=== PATIENT | male | born 1995 | race Hispanic/Latino ===

== ENCOUNTER 2020-02-25 16:29 | Emergency (ER) | payer OTHER, MEDICAID, SELFPAY ==
[2020-02-25 16:31] VITALS: BP 155/97; PULSE 83; RESP 18; TEMP 36.3; O2SAT 97; BMI 46.9
--- NOTE | 2020-02-25 17:12 | ED.VISSUMM ---
- ER Visit Summary Date of Service: 02/25/20 Chief Complaint: Right index finger laceration History of Present Illness: The patient is a 24 M presenting with right index finger laceration. Patient states he accidentally cut his right index finger on the metal edge of a tape dispenser. He is left-handed. Tetanus is up-to-date. No other injuries. Physical Examination: Vitals are stable. Patient is afebrile. Alert no acute distress. HEENT exam is unremarkable. Neck is supple. Lungs are clear and equal bilaterally. Extremities 2, 1 cm lacerations finger pad of right index finger. AFROM. Tendon function normal. Normal cap refill Skin is warm and dry. Remainder of exam is unremarkable. Emergency Department Course and Treatment: Wound was copiously irrigated. Closed with Dermabond. Advised wound care instructions. Advised to return to the ED for worsening complaints. Disposition: Discharge Impression: Right index finger laceration, laceration repair This note was generated with [employer] dictation software. It may contain incorrect words, spelling, and punctuation that were not noted in review of the chart prior to signing ED Disposition - Plan for ED Patient: Referrals: Care Physician,No Primary [Primary Care Provider] -
--- NOTE | 2020-02-25 17:16 | ED.DEP ---
ED Disposition - Plan for ED Patient: Instructions: ED Laceration Ext Skin Glue Referrals: Care Physician,No Primary [Primary Care Provider] -
[2020-02-25 17:37] VITALS: BP 110/98; PULSE 90; RESP 16; O2SAT 98
== END 2020-02-25 17:37 | disposition home or self-care (01) ==
LOC: ED 17:21
PROVIDERS: Emergency Provider Emergency Medicine
DX: S61.210A Laceration without foreign body of right index finger without damage to nail, initial encounter (principal); W26.8XXA Contact with other sharp object(s), not elsewhere classified, initial encounter; Y93.89 Activity, other specified; Y92.89 Other specified places as the place of occurrence of the external cause; Y99.8 Other external cause status
CPT/HCPCS: 12001; 99282

== ENCOUNTER 2020-03-29 08:47 | Emergency (ER) | payer OTHER, SELFPAY ==
[2020-03-29 08:49] VITALS: BP 154/84; PULSE 111; RESP 16; TEMP 36.3; O2SAT 96; BMI 40.8
--- NOTE | 2020-03-29 09:13 | RAD_ITS ---
STUDY: X-RAY CHEST REASON FOR EXAM: Male, 24 years old. N/V STARTING THIS AM -- COUGH OVER THE LAST FEW DAYS TECHNIQUE: Single AP portable view of the chest. COMPARISON: None. FINDINGS: The lungs are clear and expanded. There is no demonstrated pleural abnormality. Normal size heart. Normal mediastinum and vargas. Normal visualized pulmonary arteries. Normal visualized aortic arch and descending thoracic aorta. Normal visualized thoracic spine. Normal visualized ribs, clavicles, and shoulders. There is no demonstrated abnormality of the visualized soft tissue structures of the upper abdomen. RAD/Chest 1 View (Portable) IMPRESSION: Normal x-ray examination of the chest. Electronically Signed: Philip Renee, at 9:56 EDT , Service support ,
--- NOTE | 2020-03-29 09:15 | ED.VIS.GEN ---
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 He wears a mask the entire time he has there. He has had a cough for around 3 days. He is also felt very nauseated, this morning he vomited twice. It was nonbilious nonbloody. He has had no melena. He was advised by his work to leave and see the doctor and possibly get tested for COVID, and to get a doctors note for what ever is recommended. He denies any fevers chills or myalgias. No shortness of breath. No abdominal pain or diarrhea. No recent antibiotics or hospitalizations or surgeries. States he is healthy. He denies any dizziness/vertigo, headaches, pleuritic symptoms. No recent injuries. 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 Past Medical History - Allergies and Home Meds Allergies/Adverse Reactions: Allergies Penicillins Allergy (Verified 03/29/20 08:49) Blayne Primary Care Physician: Care Physician,No Primary [Primary Care Provider] - Past Medical History: None Smoking Status: Current some day smoker Review of Systems General: Reports: Malaise. Denies: Chills, Fever, Sweats Eyes: Denies: Visual changes - bilaterally, Diplopia ENT: Denies: Bilateral ear pain, Rhinorrhea, Sore throat Cardiovascular: Denies: Chest pain, Palpitations Respiratory: Reports: Cough. Denies: Dyspnea, Sputum, Dyspnea on exertion, Orthopnea Gastrointestinal: Reports: Nausea, Vomiting. Denies: Abdominal pain, Diarrhea, Melena, Hematochezia Genitourinary: Denies: Dysuria, Hematuria, Frequency Musculoskeletal: Denies: Myalgias, Back pain, Swelling, Extremity Pain Skin: Denies: Rash, Wounds Neurological: Denies: Headache, Weakness, Numbness Physical Exam Vital Signs/Narrative: Vital Signs Temp Pulse Resp BP Pulse Ox 03/29/20 08:49 97.4 F L 111 H 16 154/84 H 96 Inital Vital Signs reviewed: Yes General: Well nourished, Well developed, No Acute Distress Head: Normocephalic, Atraumatic Eyes: Perrl, EOMI ENT: Moist mucous membranes, No rhinorrhea, TM's clear, - - POP clear Neck: Supple, Nontender, No lymphadenopathy, No JVD Cardiovascular: Regular rate, Regular rhythm, No murmurs, Normal S1, Normal S2, Tachycardia Respiratory: No distress, CTA bilaterally, Chest nontender Abdomen: Soft, Nontender, Nondistended, Normal bowel sounds Back: Nontender, Normal Inspection. Negative for: CVA tenderness Extremities: Nontender, No edema. Negative for: Calf Tenderness Skin: Normal color, No rash, No Trauma Neurological: Alert, Oriented x3, Cranial nerves II-XII grossly intact, Normal Strength, Normal Sensation, Normal Gait Psychological: Normal affect, Normal Mood Diagnostic/Tx/Re-eval Chest X-Ray - ED: 1 View, Read by ED Physician, Normal, Heart, Lungs, Mediastinum, Bony Structures, No Acute Disease - Medical Decision Making On my interpretation chest x-ray is normal. It is possible these are atypical symptoms of COVID-19 so the test was performed as a send out. It will take 3 to 5 days to return results. Discussed this with the patient. He will look up the results and stay home from work until they are back. If negative he may return wearing a mask as long as he has symptoms, he states they do that at work anyway. Discussed reasons to return. ED Disposition - Plan for ED Patient: Disposition: Home or Assisted Living Diagnosis: Cough, Nausea & vomiting Instructions: ED Diet for Vomiting or Diarrhea Adult Referrals: Care Physician,No Primary [Primary Care Provider] - Additional Instructions: You were tested for COVID-19, however it is sent to an offsite laboratory, and will likely take 3-5 days to come back. Reference the pamphlet including with your discharge papers for information on setting up an online portal account to check the results yourself. You will need to stay home from work and quarantine yourself until the test comes back. If negative, you may return to work but you must wear a mask until your symptoms are resolved.
[2020-03-29] MEDS: Ondansetron ODT 4 MG Tablet 8 MG PO (09:22)
== END 2020-03-29 09:58 | disposition home or self-care (01) ==
PROVIDERS: Emergency Provider Emergency Medicine
DX: R05 Cough (principal); R11.2 Nausea with vomiting, unspecified; F17.200 Nicotine dependence, unspecified, uncomplicated
CPT/HCPCS: 71045; 87635; 99283; U0003

== ENCOUNTER 2020-06-24 17:08 | Emergency (ER) | payer OTHER, MEDICAID, SELFPAY ==
[2020-06-08 10:16] VITALS: BMI 46.0
[2020-06-24 17:08] VITALS: BP 129/88; PULSE 86; PULSE 97; RESP 16; TEMP 36.4; O2SAT 98; O2SAT 99; BMI 48.4
--- NOTE | 2020-06-24 18:20 | RAD_ITS ---
STUDY: X-RAY - RIGHT KNEE REASON FOR EXAM: Male, 24 years old. chronic knee pain for years TECHNIQUE: 3 view(s) of the knee. COMPARISON: None. FINDINGS: Normal visualized distal femur. Normal visualized proximal tibia and fibula. Normal proximal tibiofibular articulation. Normal medial femorotibial compartment. Normal lateral femorotibial compartment. Normal patellofemoral articulation. The soft tissue structures are unremarkable. RAD/Knee 3 Views IMPRESSION: Normal x-ray examination of the knee. Electronically Signed: Dora Dey MD at 19:01 EST Tel , Service support ,
--- NOTE | 2020-06-24 18:51 | ED.VIS.LOWEX ---
History of Present Illness Chief Complaint: Lower Extremity Injury Narrative: Patient presenting for evaluation secondary to knee pain. Patient states that over the course quite some time he has been dealing with right knee pain. He associates it with frequent what he calls dislocations of his patella. Patient states that he will be walking in his leg will give out and will feel as if his patella is dislocated. Patient denies that there is any sort of specific injury associated with this. No lifting twisting pushing pulling or falls. Patient states that he has been having increasing episodes like this. He denies any history of connective tissue disease, any history of being double jointed or frequent dislocations of any other joints. Nothing that runs in the family. No infectious signs or symptoms such as fever. Review of systems otherwise negative. Past Medical History - Allergies and Home Meds Allergies/Adverse Reactions: Allergies Penicillins Allergy (Verified 06/24/20 18:03) Hives Primary Care Physician: Care Physician,No Primary [Primary Care Provider] - Prior records reviewed: Yes Past Medical History: - - Anxiety Surgical History: noncontributory Smoking Status: Never smoker Alcohol: None Drugs: None Review of Systems General: Denies: Chills, Fever Respiratory: Denies: Dyspnea, Cough Gastrointestinal: Denies: Nausea, Vomiting Musculoskeletal: Reports: Extremity Pain Skin: Denies: Rash Neurological: Denies: Headache, Weakness Endocrine: Denies: Polyuria, Polydipsia Hematologic: Denies: Easy bruising, Easy bleeding Allergy: Denies: Swelling of the mouth Physical Exam Vital Signs/Narrative: Vital Signs Temp Pulse Resp BP Pulse Ox 06/24/20 17:08 97.5 F L 97 16 129/88 H 98 Inital Vital Signs reviewed: Yes - Extremity Exam Right Knee: - - Examination of the knee shows no evidence of joint effusion warmth or erythema. No limitation of range of motion. There is tenderness to palpation over the patella, no medial or lateral joint line tenderness. Negative Trudi posterior drawer varus and valgus stress testing. Normal distal sensat General: Well nourished, Well developed, Obese Head: Normocephalic, Atraumatic Eyes: EOMI ENT: No Trauma Neck: Full ROM Cardiovascular: Regular rate, Regular rhythm, - - 2+ radial pulses Respiratory: No distress Skin: Normal color, No rash Neurological: Alert, Oriented x3 Psychological: Normal affect Diagnostic/Tx/Re-eval Clinical Impression(s) from Imaging Studies Knee X-Ray 06/24/20 18:20 IMPRESSION: Normal x-ray examination of the knee. Electronically Signed: Dora Dey MD at 19:01 EST Tel , Service support , - Medical Decision Making Patient presented secondary to knee pain. X-rays were obtained and 3 view of the knee by my personal interpretation as well as radiology is negative for acute pathology. Patient reports that there is potential evidence that he is chronically dislocating his kneecap although I did not see any evidence of that here today. Patient will be given a referral to orthopedics for further evaluation. I do believe that he requires splinting or further current management. He was recommended conservative management measures for knee pain. ED Disposition - Plan for ED Patient: Disposition: Home or Assisted Living Diagnosis: Right knee pain Instructions: ED Knee Pain [facility] Referrals: Janes Self MD [STAFF PHYSICIAN] - 1-2 Weeks
== END 2020-06-24 21:18 | disposition home or self-care (01) ==
PROVIDERS: Emergency Provider Emergency Medicine
DX: M25.561 Pain in right knee (principal); G89.29 Other chronic pain; E66.9 Obesity, unspecified
CPT/HCPCS: 73562; 99282

== ENCOUNTER → 2020-07-13 | Outpatient (CLI) | payer OTHER, SELFPAY | END | disposition home or self-care (01) | LOC: LABSPEC 10:20 | PROVIDERS: Visit Provider Physician Assistant Surgical | DX: U07.1 COVID-19 (principal) | CPT/HCPCS: 87635; U0003 ==

== ENCOUNTER → 2020-08-03 | Outpatient (CLI) | payer OTHER, SELFPAY ==
[2020-08-03 17:31] VITALS: BMI 47.0
== END | disposition home or self-care (01) ==
LOC: LABSPEC 18:07
PROVIDERS: Visit Provider Physician Assistant Surgical
DX: Z11.59 Encounter for screening for other viral diseases (principal)
CPT/HCPCS: 87635; U0003

== ENCOUNTER → 2021-05-03 | Outpatient (CLI) | payer OTHER, SELFPAY | END | disposition home or self-care (01) | LOC: LABSPEC 09:53 | PROVIDERS: Visit Provider Physician Assistant Surgical | DX: M79.10 Myalgia, unspecified site (principal) | CPT/HCPCS: 87635; U0005; U0003 ==

== ENCOUNTER 2022-11-11 22:13 | Inpatient (IN) | payer MEDICAID, SELFPAY ==
--- NOTE | 2022-11-11 00:20 | RAD_ITS ---
INDICATION: sob EXAMINATION/TECHNIQUE: X-RAY - XR Chest 2 Views COMPARISON: None. FINDINGS: LINES/DEVICES: None. LUNGS: No consolidation, edema or effusion. No pneumothorax. MEDIASTINUM AND CARDIOVASCULAR STRUCTURES: Cardiac silhouette not enlarged. Central airways and mediastinal contour are unremarkable. BONES AND SOFT TISSUES: Unremarkable. RAD/Chest PA and Lateral IMPRESSION: No radiographic evidence of acute cardiopulmonary disease. Electronically Signed: Janna Aguilar MD at 1:40 EDT ,
[2022-11-11 22:15] VITALS: BP 133/93; PULSE 94; RESP 18; TEMP 35.8; O2SAT 98; BMI 44.1
--- NOTE | 2022-11-11 23:23 | EDS_ITS ---
HPI History of Present Illness Chief Complaint: Nausea/Vomiting Informant: patient Narrative Narrative: Patient has been vomiting off-and-on for the past 3 days. Denies any diarrhea, abdominal pain, fevers. He states 1 month ago, [facility] [place] and told that he probably has diabetes because his blood sugar was in the 300s. He used to see Dr. Rojas for primary care but he retired, so he has no PCP now and has not been able to get into see anybody since. He does not take any prescription medications. He has had extreme thirst, urinary frequency, and in the last couple days a little shortness of breath. He denies any coughing or chest pain. [facility] Medical History (Updated 11/12/22 @ 00:[address] Facundo Winter MD) H/O dislocation of knee Home Medications NK 06/24/20 [History Last Taken Unknown] Allergy/AdvReac Type Severity Reaction Status Date / Time Penicillins Allergy Hives Verified 11/11/22 22:14 Family History Other Heart disease Social History Smoking Status: Never smoker alcohol intake: never ROS ROS ED Constitutional Constitutional ED: Reports malaise; Denies chills or fever(s) Eyes Eyes: Denies change in vision or diplopia ENT ENT ED: Denies rhinorrhea or sore throat Cardiovascular Cardiovascular: Denies chest pain, orthopnea or palpitations Respiratory/Chest Respiratory/Chest: Reports dyspnea; Denies cough or orthopnea Gastrointestinal Gastrointestinal: Reports nausea and vomiting; Denies abdominal pain, diarrhea or melena Genitourinary Genitourinary ED: Reports urinary frequency; Denies dysuria or hematuria Musculoskeletal Musculoskeletal: Denies back pain or neck pain Integumentary Denies abscess or rash Neurologic Neurologic: Denies headache(s), paresthesias or weakness Psychiatric Psychiatric: Denies anxiety or suicidal thoughts Endocrine Endocrinology: Reports polydipsia and polyuria EXAM Physical Exam Const Vital Signs: 11/11/22 22:15 Temperature 96.5 F L Temperature Source Temporal Pulse Rate 94 Respiratory Rate 18 Blood Pressure 133/93 H Blood Pressure Mean 106 Pulse Ox 98 Oxygen Delivery Method Room Air Positive well nourished and well developed General Appearance ED: well developed and NAD HEENT Reports dry mucous membranes normocephalic and atraumatic Mouth ED: Yes dry mucous membranes Mouth: dry mucous membranes Eyes PERRL and EOMs intact bilaterally Neck full ROM and supple Chest Wall inspection of chest normal and palpation of chest normal Resp normal respiratory effort and clear to auscultation bilaterally Cardio regular rate, regular rhythm and no murmurs Rate: tachycardic GI non-tender and non-distended Auscultation: normoactive bowel sounds Palpation: soft Back/Spine no CVA tenderness General Back: other FROM Extremity normal to inspection General Extremety ED: Negative for edema, pulses abnormal or tenderness General Extremity: Negative for edema or pulses abnormal Neuro oriented x3, CN's II-XII intact bilaterally and no sensory deficits noted Sensorium / Orientation: awake and alert Motor Exam: strength 5/5 throughout Psych mental status grossly normal Skin no rashes or lesions noted and no wounds MDM MDM MDM Narrative Medical decision making narrative: Concern clinically is that patient was in DKA, and basically the work-up confirms that with an acidotic state venous gas, we attempted to get an ABG but respiratory got venous on accident, with a pH of 7.2, moderate ketones, anion gap at 19, and his potassium is low at 3.1. Therefore I held insulin until we can get some potassium replacement in him, he was getting IV fluids and Zofran while we were waiting for the work-up which did help some, he is hemodynamically stable. Discussed with hospitalist plan is to admit to the ICU. Lab Data Attestation: I reviewed the patient's lab results. Labs: Laboratory Results - last 24 hr 11/11/22 11/11/22 11/11/22 23:23 23:40 23:40 WBC 12.2 H RBC 5.56 Hgb 16.1 Hct 47.6 MCV 85.6 MCH 29.0 MCHC 33.8 RDW Std Deviation 42.1 RDW Coeff of Ivonne 13.6 Plt Count 182 MPV 13.3 H Immature Gran % (Auto) 0.700 Neut % (Auto) 72.5 H Lymph % (Auto) 18.6 L [place] % (Auto) 7.8 Eos % (Auto) 0.1 Baso % (Auto) 0.3 Absolute Neuts (auto) 8.9 H Absolute Lymphs (auto) 2.27 Nucleated RBC % 0 Sodium 132 L Potassium 3.1 L Chloride 103 Carbon Dioxide 10.0 L Anion Gap 19 H BUN 4 L Creatinine 1.01 Estim Creat Clear Calc 106.29 Est GFR (MDRD) Af Amer 114 Est GFR (MDRD) Non-Af 94 BUN/Creatinine Ratio 4.0 L Glucose 304 H Calcium 9.1 Total Bilirubin 0.40 AST 19 ALT 41 Alkaline Phosphatase 145 H Total Protein 7.8 Albumin 3.7 Globulin 4.1 Albumin/Globulin Ratio 0.9 Lipase 157 Acetone Level POC Glucose 298 H 11/11/22 23:40 WBC RBC Hgb Hct MCV MCH MCHC RDW Std Deviation RDW Coeff of Ivonne Plt Count MPV Immature Gran % (Auto) Neut % (Auto) Lymph % (Auto) [place] % (Auto) Eos % (Auto) Baso % (Auto) Absolute Neuts (auto) Absolute Lymphs (auto) Nucleated RBC % Sodium Potassium Chloride Carbon Dioxide Anion Gap BUN Creatinine Estim Creat Clear Calc Est GFR (MDRD) Af Amer Est GFR (MDRD) Non-Af BUN/Creatinine Ratio Glucose Calcium Total Bilirubin AST ALT Alkaline Phosphatase Total Protein Albumin Globulin Albumin/Globulin Ratio Lipase Acetone Level MODERATE H POC Glucose ABG Data ABG results: ABG 11/12/22 00:11 Specimen Type ART Sample Site R Radial pH 7.21 L Bicarbonate Actual 10.2 L Total CO2 11 Base Excess -18 L O2 Saturation 55 L ABG pCO2 25.5 L ABG pO2 34 L* Patricio Test Positive O2 Delivery Device Room Air Crit Call To/Read Back Yes Blood Gas Notified Whom dr winter Rhythm Strip Rhythm Strip: Sinus Tach Rate: 110 Ectopy: None EKG Initial EKG: Attestation: I personally reviewed and interpreted this EKG as follows: Interpretation: No Acute Injury Pattern and Sinus Tachycardia Comments: U waves present Management Discussion w/another healthcare provider: Hospitalist Discharge Plan Dx/Rx/DC Orders Clinical Impression: DKA (diabetic ketoacidosis), Hypokalemia due to excessive gastrointestinal loss of potassium, Diabetes mellitus, new onset Disposition Disposition: [facility]
[2022-11-11] MEDS: 0.9% Normal Saline 1,000 ML 999 ML IV (23:40)
[2022-11-11 23:45] LABS: Bedside Glucose 298 mg/dL (74-106)
[2022-11-11 23:54] LABS: Absolute Lymphocyte Count 2.27 X10^3/uL (0.83-4.51); Absolute Neutrophil Count 8.9 X10^3/uL (2.0-7.7); Basophil# 0.04 X10^3/uL; Basophil% 0.3 % (0-1); Eosinophil# 0.01 X10^3/uL; Eosinophils% 0.1 % (0-5); Hematocrit 47.6 % (40-54); Hemoglobin 16.1 g/dL (13.0-16.5); Lymphocyte # 2.27 X10^3/ul (0.83-4.51); Lymphocyte % 18.6 % (19-41); Mean Corp Hgb Conc 33.8 g/dL (32-36); Mean Corpuscular Volume 85.6 fL (80-94); Mean Platelet Vol. 13.3 fl (6.2-12.0); Monocyte# 0.95 X10^3/uL; Monocyte% 7.8 % (0-10); NRBC Flagged by Analyzer 0 % (0-5); Neutrophil # 8.86 X10^3/uL (2.7-7.7); Neutrophil % 72.5 % (47-70); Platelet Count 182 K/mm3 (150-450); RBC Distribution Width CV 13.6 % (11.6-14.6); RBC Distribution Width SD 42.1 fl (35.1-43.9); Red Blood Count 5.56 M/mm3 (4.6-6.2); White Blood Count 12.2 K/mm3 (4.4-11.0)
[2022-11-12] VITALS (29 sets, daily range): BP systolic 115–168; BP diastolic 60–119; PULSE 96–130; RESP 15–24; TEMP 36.3–36.9; O2SAT 95–100; BMI 44.1; BMI 43.9
[2022-11-12 00:11] LABS: ALB/GLOB Ratio 0.9 RATIO (0.9-2.4); AST(SGOT) 19 U/L (15-37); Alanine Aminotransfer ALT/SGPT 41 U/L (16-61); Albumin, Serum 3.7 g/dL (3.2-5.0); Alkaline Phosphatase 145 U/L (45-117); Anion Gap 19 (5-15); BUN 4 mg/dL (7-18); Calcium,Total 9.1 mg/dL (8.5-10.1); Chloride 103 mmol/L (98-107); Creatinine, Serum 1.01 mg/dL (0.70-1.30); EST Glomerular Filtration Rate 94 mL/min (>60); Est Glom Filt Rate - Afr Amer 114 mL/min (>60); Estimated Creatinine Clearance 106.29 ml/min; Globulin 4.1 g/dL (2.2-4.2); Glucose 304 mg/dL (74-106); Lipase 157 U/L (73-393); Potassium 3.1 mmol/L (3.5-5.1); Protein, Total 7.8 g/dL (6.4-8.2); Sodium Level 132 mmol/L (136-145)
[2022-11-12 00:21] LABS: Allen Test Positive; Base Excess -18 mmol/L (-2 to +2); Bicarbonate 10.2 mmol/L (22-26); Blood Gas Specimen Type ART; O2 Delivery Device Room Air; PO2 34 mmHG (75-100); SITE R Radial; SO2 55 % (95-99); Total Carbon Dioxide 11 mmol/L; pCO2 25.5 mmHg (35-45); pH 7.21 (7.35-7.45)
[2022-11-12] MEDS: 0.9% Normal Saline 1,000 ML 999 ML IV ×2 (00:42→02:40)
[2022-11-12] MEDS: Potassium Chloride 10mEq/100mL 10 MEQ/100 ML IV.SOLN. 100 MEQ IV BOLUS ×5 (00:56→08:45)
--- NOTE | 2022-11-12 01:17 | PCM.HP.STD ---
HPI - General General Date of Admission: 11/12/22 Date of Service: 11/12/22 Chief Complaint: Nausea and vomiting HPI Narrative LONNIE CHAN, is a 27 M who presented to the emergency department [facility] on 11/12/2022 with ongoing nausea and vomiting for approximately the past 3-4 days. He has had no abdominal pain, diarrhea, fever, chills and his bowels have been normal. He reported that approximately 1 month ago he was seen at the emergency department in [place] and told that he probably had diabetes because his blood sugar was in the 300s. Unfortunately his primary care physician has recently tired and he is not established with a new PCP and was unable to get into see anybody since that time. He has had polydipsia and polyuria and some shortness of breath that is been ongoing for the last couple of days. He does have a family history of diabetes but is uncertain if it is type I or type II. Vital signs on presentation demonstrated temperature of 96.5, heart rate 120, blood pressure 168/89, respiratory rate 16-22 and oxygen saturation was 100% on room air. CBC shows a mild leukocytosis with a white count of 12.2 and a mild left shift with a 72.5% neutrophilia. CBC was otherwise unremarkable. His chemistry panel was markedly abnormal with a sodium of 132, potassium 3.1, so a serum bicarb of 10, anion gap of 19, BUN of 4 and serum creatinine 1.01. Serum glucose was 304. Liver function was normal other than mildly elevated alk phos at 145. Lipase was 147. Serum acetone was moderate. VBG demonstrated a pH of 7.21/PCO2 of 25.5. Chest x-ray was unremarkable. The emergency department he was started on IV fluids, insulin drip and given potassium. [facility] Medical History (Updated 11/12/22 @ 01:[address] Adeola Siddiqi DO) Anxiety COVID-19 H/O dislocation of knee Morbid obesity Home Medications NK 06/24/20 [History Last Taken Unknown] Allergy/AdvReac Type Severity Reaction Status Date / Time Penicillins Allergy Hives Verified 11/11/22 22:14 Family History (Updated 11/12/22 @ 01:[address] Adeola Siddiqi DO) Other Cancer Diabetes Heart disease Hyperlipidemia Hypertension no surgical history Social History (Updated 11/12/22 @ 01:[address] Adeola Devang, DO) household members: family housing: house current occupational status: unemployed current occupation: Currently searching for work Smoking Status: Never smoker alcohol intake: never substance use type: marijuana ROS Constitutional Constitutional: Reports anorexia; Denies change in weight, chills, fatigue, fever(s), malaise, night sweats, weakness or other Eyes Eyes: Reports blurry vision; Denies change in eye color, change in vision, discharge from eye(s), double vision, erythema, eye pain, loss of vision or other ENT HEENT: Denies abnormal hearing, dysphagia, ear pain, epistaxis, headache(s), hearing loss, nasal congestion, nasal discharge, post nasal drip, sinus pressure, sore throat or other Cardiovascular Cardiovascular: Denies chest pain, claudication, dyspnea on exertion, edema, lightheadedness, orthopnea, palpitations, paroxysmal nocturnal dyspnea, rapid heart rate, syncope or other Respiratory/Chest Respiratory/Chest: Denies cough, dyspnea, excessive phlegm production, hemoptysis, productive cough, shortness of breath at rest, shortness of breath with exertion, wheezing or other Gastrointestinal Gastrointestinal: Reports nausea and vomiting; Denies abdominal pain, coffee ground emesis, constipation, diarrhea, dyspepsia, hematemesis, hematochezia, loose stools, melena or other Genitourinary Genitourinary: Denies burning urination, difficulty urinating, dysuria, hematuria, nocturia, urinary frequency, urinary hesitancy, urinary incontinence, urinary urgency or other Musculoskeletal Musculoskeletal: Denies arthralgias, back pain, joint pain, joint stiffness, joint swelling, myalgias, neck pain or other Neurologic Neurologic: Denies abnormal gait, abnormal speech, confusion, disequilibrium, dizziness, focal weakness, headache(s), numbness, paresthesias, seizure-like activity, seizures, syncope, tingling, tremor(s) or other Psychiatric Psychiatric: Reports anxiety; Denies depression, homicidal ideation, suicidal ideation or other Endocrine Endocrinology: Reports polydipsia and polyuria; Denies change in body appearance, cold intolerance, excessive sweating, heat intolerance or other Hematologic/Lymphatic Hematologic/Lymphatic: Denies anemia, easy bleeding, easy bruising, lymphadenopathy or other Allergic/Immunologic Allergic/Immunologic: Denies rhinitis, hives, eczemia, asthma or other Vital Signs Vital Signs Vital Signs: 11/11/22 22:15 11/12/22 00:00 11/12/22 01:00 Temperature 96.5 F L Temperature Source Temporal Pulse Rate 94 120 H 112 H Respiratory Rate 18 16 22 H Blood Pressure 133/93 H 168/89 H 152/132 H Blood Pressure Mean 106 105 140 Pulse Ox 98 100 100 Oxygen Delivery Method Room Air 11/12/22 01:01 Temperature Temperature Source Pulse Rate Respiratory Rate Blood Pressure Blood Pressure Mean Pulse Ox 100 Oxygen Delivery Method Weight Weight: 131.542 kg Body Mass Index (BMI) 44.1 Physical Exam Const alert, oriented x3, no apparent distress and well nourished Constitutional Narrative: Morbidly obese, Young white male sitting up in bed, father bedside, patient is very pleasant appears comfortable at this time, nontoxic but appears as if he is not feeling well General Appearance: cooperative HEENT normocephalic, head/scalp atraumatic, hearing grossly normal bilaterally, oropharynx normal and dentition normal; Negative for moist oral mucous membranes HEENT Narrative: Mucous membranes are dry, dentition is good, Mallampati is 2-3, no thrush Eyes PERRL, EOMs intact bilaterally and conjunctivae normal Eyes Narrative: No scleral icterus Neck no lymphadenopathy, supple, no JVD and no carotid bruits Neck Narrative: Trachea midline, no thyroid enlarged Resp normal respiratory effort, no retractions, no use of accessory muscles and clear to auscultation bilaterally Resp Narrative: Slight tachypnea Auscultation: Negative for rales, rhonchi or wheezes Cardio regular rate, regular rhythm, S1 normal heart sound, S2 normal heart sound, no murmurs, no rub, no gallops and no clicks GI normal to inspection, nondistended, normoactive bowel sounds, soft to palpation and non-tender Extremity no clubbing, cyanosis or edema Extremity Narrative: 2+ pedal pulses Skin no rashes or lesions noted, no wounds, skin turgor normal, no jaundice, no petechiae and no mottling Neuro oriented x3, CN's II-XII intact bilaterally, moves all extremities and no focal motor deficits Speech: speech normal Motor Exam: strength 5/5 throughout Psych affect normal Psych Narrative: Extremely pleasant, gracious for care, appropriately interactive Results Lab / Micro Data Result Diagrams: 11/11/22 23:40 11/11/22 23:40 Labs: Laboratory Results - last 24 hr 11/11/22 23:23: POC Glucose 298 H 11/11/22 23:40: WBC 12.2 H, RBC 5.56, Hgb 16.1, Hct 47.6, MCV 85.6, MCH 29.0, MCHC 33.8, RDW Std Deviation 42.1, RDW Coeff of Ivonne 13.6, Plt Count 182, MPV 13.3 H, Immature Gran % (Auto) 0.700, Neut % (Auto) 72.5 H, Lymph % (Auto) 18.6 L, [place] % (Auto) 7.8, Eos % (Auto) 0.1, Baso % (Auto) 0.3, Absolute Neuts (auto) 8.9 H, Absolute Lymphs (auto) 2.27, Nucleated RBC % 0 11/11/22 23:40: Sodium 132 L, Potassium 3.1 L, Chloride 103, Carbon Dioxide 10.0 L, Anion Gap 19 H, BUN 4 L, Creatinine 1.01, Estim Creat Clear Calc 106.29, Est GFR (MDRD) Af Amer 114, Est GFR (MDRD) Non-Af 94, BUN/Creatinine Ratio 4.0 L, Glucose 304 H, Calcium 9.1, Total Bilirubin 0.40, AST 19, ALT 41, Alkaline Phosphatase 145 H, Total Protein 7.8, Albumin 3.7, Globulin 4.1, Albumin/Globulin Ratio 0.9, Lipase 157 11/11/22 23:40: Acetone Level MODERATE H ABG Data ABG results: ABG 11/12/22 00:11 Specimen Type ART Sample Site R Radial pH 7.21 L Bicarbonate Actual 10.2 L Total CO2 11 Base Excess -18 L O2 Saturation 55 L ABG pCO2 25.5 L ABG pO2 34 L* Patricio Test Positive O2 Delivery Device Room Air Crit Call To/Read Back Yes Blood Gas Notified Whom dr winter Rhythm Strip Rhythm Strip: Sinus Tach Rate: 110 Ectopy: None Assessment & Plan Assessment/Plan (1) Hypokalemia: (2) DKA (diabetic ketoacidosis): (3) Diabetes mellitus, new onset: (4) Nausea & vomiting: QUALIFIERS: Vomiting type: unspecified Vomiting Intractability: non-intractable Qualified Code(s): R11.2 - Nausea with vomiting, unspecified PLAN: Plan DKA -Order set utilized -Start insulin drip -Start IV fluids -Serial BMP/mag/Phos -N.p.o. for now -Antiemetics as needed New onset diabetes mellitus -Suspect type I -Check anti-MERCY, antiislet cell, and C-peptide level -Will need started on insulin once out of DKA -Dietitian consulted for dietary counseling -Recommend outpatient follow-up with Dr. Burns after discharge -Check hemoglobin A1c Hypokalemia -Suspect this is related with his ongoing nausea vomiting and decreased intake over the last 3 to 4 days -We will replace with 40 mill equivalents now as I suspect when we start insulin potassium will be driven intracellularly and his potassium will drop even further -Check serial potassium levels and replace accordingly Nausea and vomiting -Due to the above -As needed antiemetics -Should improve once DKA is resolving Elevated blood pressure -Patient does not have a diagnosis of hypertension -We will start low-dose lisinopril at 10 mg daily with new onset diabetes for renal protection and improved control of his blood pressure -Current blood pressure goal is going to be less than 130/80 Morbid obesity -Recommend weight loss -BMI 44.1 -Complicates treatment, prognosis, outcomes DVT prophylaxis -Lovenox 40 mg twice daily CODE STATUS -Full code Charges/Coding Visit Charges Inpatient E&M: 79378 Init Hosp L3
[2022-11-12 02:06] LABS: Bacteria 0 SEEN /hpf (None Seen); Mucous, Urine 0 SEEN /hpf (<or=2+); Squamous Epithelial Cells - UA 0 SEEN /hpf (0-5); White Blood Cells 0 SEEN /hpf (0-5)
[2022-11-12 02:08] LABS: Color, Urine Yellow (Yellow); Glucose, Dipstick 1000 mg/dl (Normal); Leukocyte Esterase-Dipstick Negative /ul (Negative); Nitrite-Dipstick Negative (Negative); Occult Blood-Urine 25 /ul (Negative); Protein-Dipstick 30 mg/dl (Negative); Specific Gravity, Urine 1.025 (1.002-1.030); Urine Bilirubin Dipstick Negative (Negative); Urine Clarity Clear (Clear); Urine Urobilinogen Normal (Normal)
[2022-11-12 02:09] LABS: Ketone-Dipstick 150 mg/dl (Negative)
[2022-11-12 02:14] LABS: Hyaline Cast 0-5 SEEN /lpf (0-5); Red Blood Cells-Urine 0-5 SEEN /hpf (0-5)
[2022-11-12 03:20] LABS: Absolute Lymphocyte Count 2.82 X10^3/uL (0.83-4.51); Basophil# 0.04 X10^3/uL; Basophil% 0.3 % (0-1); Eosinophil# 0.01 X10^3/uL; Eosinophils% 0.1 % (0-5); Hematocrit 43.3 % (40-54); Hemoglobin 14.4 g/dL (13.0-16.5); Lymphocyte # 2.82 X10^3/ul (0.83-4.51); Lymphocyte % 23.7 % (19-41); Mean Corp Hgb Conc 33.3 g/dL (32-36); Mean Corpuscular Hgb 28.5 pg (27.0-32.0); Mean Corpuscular Volume 85.7 fL (80-94); Mean Platelet Vol. 12.9 fl (6.2-12.0); Monocyte# 0.95 X10^3/uL; NRBC Flagged by Analyzer 0 % (0-5); Neutrophil % 67.1 % (47-70); Platelet Count 175 K/mm3 (150-450); RBC Distribution Width CV 13.7 % (11.6-14.6); RBC Distribution Width SD 42.4 fl (35.1-43.9); Red Blood Count 5.05 M/mm3 (4.6-6.2); White Blood Count 11.9 K/mm3 (4.4-11.0)
[2022-11-12 03:32] LABS: Anion Gap 14 (5-15); BUN 3 mg/dL (7-18); BUN/Creat Ratio 3.3 RATIO (10-20); Calcium,Total 7.8 mg/dL (8.5-10.1); Chloride 111 mmol/L (98-107); Creatinine, Serum 0.91 mg/dL (0.70-1.30); EST Glomerular Filtration Rate 106 mL/min (>60); Est Glom Filt Rate - Afr Amer 128 mL/min (>60); Estimated Creatinine Clearance 117.97 ml/min; Glucose 238 mg/dL (74-106); Potassium 2.8 mmol/L (3.5-5.1); Sodium Level 136 mmol/L (136-145)
[2022-11-12 03:53] LABS: Hemoglobin A1c 11.6 % (3.8-5.6)
[2022-11-12 04:15] LABS: Magnesium 1.7 mg/dL (1.6-2.6)
[2022-11-12 04:18] LABS: Phosphorus 1.1 mg/dL (2.5-4.9)
[2022-11-12] MEDS: Dext 5%-0.45% NS 1,000 ML 150 ML IV ×3 (04:19→21:45)
[2022-11-12] MEDS: Ondansetron 4 MG/2 ML Vial IV ×4 (05:19→21:19)
[2022-11-12] MEDS: Lisinopril 10 MG Tablet PO (05:20)
[2022-11-12 05:26] LABS: Bedside Glucose 171 mg/dL (74-106)
[2022-11-12 05:26] LABS: Bedside Glucose 169 mg/dL (74-106)
[2022-11-12 05:26] LABS: Bedside Glucose 252 mg/dL (74-106)
[2022-11-12 06:25] LABS: Bedside Glucose 188 mg/dL (74-106)
[2022-11-12 07:30] LABS: Bedside Glucose 172 mg/dL (74-106)
[2022-11-12 07:43] LABS: Anion Gap 13 (5-15); BUN 3 mg/dL (7-18); BUN/Creat Ratio 3.7 RATIO (10-20); Calcium,Total 8.1 mg/dL (8.5-10.1); Chloride 112 mmol/L (98-107); Cholesterol 159 mg/dL (200); EST Glomerular Filtration Rate 123 mL/min (>60); Est Glom Filt Rate - Afr Amer 148 mL/min (>60); Estimated Creatinine Clearance 134.19 ml/min; Glucose 180 mg/dL (74-106); High Density Lipoprotein 24 mg/dL; Potassium 2.8 mmol/L (3.5-5.1); Sodium Level 136 mmol/L (136-145); Thyroid Stim Hormone (TSH) 1.03 uIU/mL (0.358-3.74); Triglycerides 123 mg/dL; Very Low Density Lipoprotein 25 mg/dL (5-40)
[2022-11-12 07:58] LABS: Phosphorus 0.8 mg/dL (2.5-4.9)
[2022-11-12] MEDS: Insulin Lispro 100 UNIT/ML INSULN.PEN SC ×2 (09:01→12:11)
[2022-11-12] MEDS: Insulin Glargine-YFGN 100 UNIT/ML Pen 10 UNIT SC (09:02)
[2022-11-12] MEDS: Enoxaparin 40 MG/0.4 ML Syringe SC ×2 (09:02→21:14)
[2022-11-12 09:15] LABS: Bedside Glucose 165 mg/dL (74-106)
[2022-11-12 09:25] LABS: Bedside Glucose 167 mg/dL (74-106)
[2022-11-12] MEDS: Calcium Carbonate 500 MG Tablet 1000 MG PO (09:47)
[2022-11-12] MEDS: proCHLORPERazine 10 MG/2 ML Vial 5 MG IV (09:57)
[2022-11-12] MEDS: 0.9% Saline Lock 10 ML Syringe IV ×2 (09:57→17:58)
[2022-11-12 11:39] LABS: Anion Gap 16 (5-15); BUN 3 mg/dL (7-18); BUN/Creat Ratio 3.4 RATIO (10-20); Calcium,Total 8.4 mg/dL (8.5-10.1); Chloride 108 mmol/L (98-107); Creatinine, Serum 0.88 mg/dL (0.70-1.30); EST Glomerular Filtration Rate 111 mL/min (>60); Est Glom Filt Rate - Afr Amer 134 mL/min (>60); Estimated Creatinine Clearance 121.99 ml/min; Glucose 231 mg/dL (74-106); Potassium 3.2 mmol/L (3.5-5.1); Sodium Level 136 mmol/L (136-145)
[2022-11-12 11:48] LABS: Magnesium 1.5 mg/dL (1.6-2.6)
[2022-11-12 11:50] LABS: Phosphorus 2.9 mg/dL (2.5-4.9)
[2022-11-12 12:35] LABS: Bedside Glucose 269 mg/dL (74-106)
--- NOTE | 2022-11-12 13:41 | PN_ITS ---
Subjective Subjective Patient seen and examined. Complain of some nausea today. Was admitted locally nausea and vomiting and found to be in DKA. Blood sugar is down in the 170s this morning and anion gap is closed x2. Systems otherwise negative. Objective Data Objective Data Vital Signs: Vital Signs Temp Pulse Resp BP Pulse Ox O2 Del Method 97.3 F L 110 H 16 124/80 H 99 Room Air 11/12/22 12:08 11/12/22 13:00 11/12/22 13:00 11/12/22 12:08 11/12/22 13:00 11/12/22 13:00 Oxygen Delivery Method Room Air Weight: 290 lb 2.053 oz Body Mass Index (BMI) 43.9 Intake & Output: Intake and Output for Last 24 Hours 11/10/22 11/11/22 11/12/22 23:59 23:59 23:59 Intake Total 4347.39 / 4347.39 Output Total 1950 / 1950 Balance 2397.39 / 2397.39 Lab / Micro Data Result Diagrams: 11/12/22 03:05 11/12/22 11:20 Labs: Laboratory Results - last 24 hr 11/11/22 02:00: Urine Color Yellow, Urine Clarity Clear, Urine pH 5.0, Ur Specific [place] 1.025, Urine Protein 30 H, Urine Glucose (UA) 1000 H, Urine Ketones 150 A*, Urine Occult Blood 25 H, Urine Nitrite Negative, Urine Bilirubin Negative, Urine Urobilinogen Normal, Ur Leukocyte Esterase Negative, Urine RBC 0-5 SEEN, Urine WBC 0 SEEN, Ur Squamous Epith Cells 0 SEEN, Urine Bacteria 0 SEEN, Hyaline Casts 0-5 SEEN, Urine Mucus 0 SEEN 11/11/22 23:23: POC Glucose 298 H 11/11/22 23:40: WBC 12.2 H, RBC 5.56, Hgb 16.1, Hct 47.6, MCV 85.6, MCH 29.0, MCHC 33.8, RDW Std Deviation 42.1, RDW Coeff of Ivonne 13.6, Plt Count 182, MPV 13.3 H, Immature Gran % (Auto) 0.700, Neut % (Auto) 72.5 H, Lymph % (Auto) 18.6 L, [place] % (Auto) 7.8, Eos % (Auto) 0.1, Baso % (Auto) 0.3, Absolute Neuts (auto) 8.9 H, Absolute Lymphs (auto) 2.27, Nucleated RBC % 0 11/11/22 23:40: Sodium 132 L, Potassium 3.1 L, Chloride 103, Carbon Dioxide 10.0 L, Anion Gap 19 H, BUN 4 L, Creatinine 1.01, Estim Creat Clear Calc 106.29, Est GFR (MDRD) Af Amer 114, Est GFR (MDRD) Non-Af 94, BUN/Creatinine Ratio 4.0 L, Glucose 304 H, Calcium 9.1, Total Bilirubin 0.40, AST 19, ALT 41, Alkaline Phosphatase 145 H, Total Protein 7.8, Albumin 3.7, Globulin 4.1, Albumin/Globulin Ratio 0.9, Lipase 157 11/11/22 23:40: Acetone Level MODERATE H 11/11/22 23:40: Hemoglobin A1c 11.6 H 11/12/22 02:36: POC Glucose 252 H 11/12/22 03:05: Magnesium 1.7 11/12/22 03:05: Phosphorus 1.1 L* 11/12/22 03:05: Sodium 136, Potassium 2.8 L, Chloride 111 H, Carbon Dioxide 11.0 L, Anion Gap 14, BUN 3 L, Creatinine 0.91, Estim Creat Clear Calc 117.97, Est GFR (MDRD) Af Amer 128, Est GFR (MDRD) Non-Af 106, BUN/Creatinine Ratio 3.3 L, Glucose 238 H, Calcium 7.8 L 11/12/22 03:05: WBC 11.9 H, RBC 5.05, Hgb 14.4, Hct 43.3, MCV 85.7, MCH 28.5, MCHC 33.3, RDW Std Deviation 42.4, RDW Coeff of Ivonne 13.7, Plt Count 175, MPV 12.9 H, Immature Gran % (Auto) 0.800, Neut % (Auto) 67.1, Lymph % (Auto) 23.7, [place] % (Auto) 8.0, Eos % (Auto) 0.1, Baso % (Auto) 0.3, Absolute Neuts (auto) 8.0 H, Absolute Lymphs (auto) 2.82, Nucleated RBC % 0 11/12/22 03:43: POC Glucose 171 H 11/12/22 05:07: POC Glucose 169 H 11/12/22 06:05: POC Glucose 188 H 11/12/22 07:05: Magnesium 2.0 11/12/22 07:05: Phosphorus 0.8 L* 11/12/22 07:05: Sodium 136, Potassium 2.8 L, Chloride 112 H, Carbon Dioxide 11.0 L, Anion Gap 13, BUN 3 L, Creatinine 0.80, Estim Creat Clear Calc 134.19, Est GFR (MDRD) Af Amer 148, Est GFR (MDRD) Non-Af 123, BUN/Creatinine Ratio 3.7 L, Glucose 180 H, Calcium 8.1 L, Triglycerides 123, Cholesterol 159, LDL Cholesterol 110, VLDL Cholesterol 25, HDL Cholesterol 24 L, TSH 1.03 11/12/22 07:07: POC Glucose 172 H 11/12/22 08:06: POC Glucose 165 H 11/12/22 09:01: POC Glucose 167 H 11/12/22 11:20: Magnesium 1.5 L 11/12/22 11:20: Phosphorus 2.9 11/12/22 11:20: Sodium 136, Potassium 3.2 L, Chloride 108 H, Carbon Dioxide 12.0 L, Anion Gap 16 H, BUN 3 L, Creatinine 0.88, Estim Creat Clear Calc 121.99, Est GFR (MDRD) Af Amer 134, Est GFR (MDRD) Non-Af 111, BUN/Creatinine Ratio 3.4 L, Glucose 231 H, Calcium 8.4 L 11/12/22 12:10: POC Glucose 269 H ABG Data ABG results: ABG 11/12/22 00:11 Specimen Type ART Sample Site R Radial pH 7.21 L Bicarbonate Actual 10.2 L Total CO2 11 Base Excess -18 L O2 Saturation 55 L ABG pCO2 25.5 L ABG pO2 34 L* Patricio Test Positive O2 Delivery Device Room Air Crit Call To/Read Back Yes Blood Gas Notified Whom dr winter Radiography Diagnostic Testing: Radiology Impression Chest X-Ray 11/11/22 00:20 IMPRESSION: No radiographic evidence of acute cardiopulmonary disease. Electronically Signed: Janna Aguilar MD at 1:40 EDT , Rhythm Strip Rhythm Strip: Sinus Tach Rate: 110 Ectopy: None Physical Exam Const alert, oriented x3 and no apparent distress Constitutional Narrative: morbid obesity HEENT normocephalic, head/scalp atraumatic and moist oral mucous membranes Eyes PERRL and EOMs intact bilaterally Neck no lymphadenopathy and supple Lymph Lymphatic: no lymphadenopathy noted and no lymphedema noted Resp normal respiratory effort, normal air movement and clear to auscultation bilaterally Cardio regular rate, regular rhythm, S1 normal heart sound, S2 normal heart sound and no murmurs GI normal to inspection, nondistended, normoactive bowel sounds, soft to palpation, non-tender and non-distended Extremity normal capillary refill, no clubbing, cyanosis or edema and no calf tenderness Skin General Skin Exam: no breakdown Neuro CN's II-XII intact bilaterally, no focal motor deficits and no sensory deficits noted Coordination / Balance: [id number] test normal Psych thought process normal Appearance: appropriate Assessment & Plan Assessment/Plan (1) Hypokalemia: (2) Metabolic acidosis: (3) DKA (diabetic ketoacidosis): PLAN: Plan #DKA in a newly diagnosed diabetic * admitted with a complaint of nausea and vomiting. He was found to be in DKA. * Was diagnosed with diabetes after he presented at an outside hospital with elevated blood sugars about a month ago. Was told to follow-up with the PCP but says he has been procrastinating and only came into the ED because his nausea and vomiting and generalized malaise worsened. * Was on heparin drip but gap has closed twice. * Patient switched to subcu Lantus 10 units daily. A1c is 11.6. * anion gap opened up again with bicarb being 12. * was initially switched to SQ insulin, but will place back on insulin drip as anion gap hasnt fully closed * continue aggressive hydration with iVF * will switch to SQ insulin once gap closed and remains closed. * IV zofran prn * anti MERCY, C peptide ordered and pending * will jovanny to follow up with endocrinology upon discharge. * #Anion gap metabolic acidosis: Bicarb is 12 and anion gap is 16. Likely due to DKA. Should close with treatment of DKA #Hypokalemia, hypophosphatemia and hypomagnesemia * will replace aggressively and trend. * #Elevated blood pressure * not a known hypertensive. Started on lisinopril 10mg daily * #Super morbid obesity * BMI is 44.1. Complicates acute care, expected recovery and prognosis. * DVT prophylaxis: lovenox 40mg bid Total time spent on evaluation and management of patient, reviewing chart and specialist notes, discussing plan with patient and his , discussion with nursing and ancillary staff as well as documentation: 47 mins Charges/Coding Visit Charges Inpatient E&M: 63710 Subs Hosp L3
[2022-11-12] MEDS: Magnesium Sulfate 4gm/100mL 4 GM/100 ML IV.SOLN. IV (14:06)
[2022-11-12] MEDS: 0.9% Normal Saline 1,000 ML 150 ML IV (14:10)
[2022-11-12 16:21] LABS: Bedside Glucose 219 mg/dL (74-106)
[2022-11-12 16:21] LABS: Bedside Glucose 248 mg/dL (74-106)
[2022-11-12 18:20] LABS: Anion Gap 14 (5-15); BUN 2 mg/dL (7-18); BUN/Creat Ratio 2.5 RATIO (10-20); Calcium,Total 8.1 mg/dL (8.5-10.1); Chloride 109 mmol/L (98-107); Creatinine, Serum 0.81 mg/dL (0.70-1.30); EST Glomerular Filtration Rate 121 mL/min (>60); Est Glom Filt Rate - Afr Amer 147 mL/min (>60); Estimated Creatinine Clearance 132.53 ml/min; Glucose 160 mg/dL (74-106); Potassium 2.8 mmol/L (3.5-5.1); Sodium Level 135 mmol/L (136-145)
[2022-11-12 18:55] LABS: Magnesium 2.6 mg/dL (1.6-2.6)
[2022-11-12 19:07] LABS: Phosphorus 1.1 mg/dL (2.5-4.9)
[2022-11-12 19:20] LABS: Bedside Glucose 158 mg/dL (74-106)
[2022-11-12 19:20] LABS: Bedside Glucose 171 mg/dL (74-106)
[2022-11-12 19:36] LABS: Bedside Glucose 128 mg/dL (74-106)
[2022-11-12 20:45] LABS: Bedside Glucose 148 mg/dL (74-106)
[2022-11-12] MEDS: MELATONIN 3 MG TABLET PO (21:19)
[2022-11-12 21:35] LABS: Bedside Glucose 164 mg/dL (74-106)
[2022-11-12 22:30] LABS: Bedside Glucose 160 mg/dL (74-106); Magnesium 2.3 mg/dL (1.6-2.6)
[2022-11-12 22:37] LABS: Anion Gap 12 (5-15); BUN 2 mg/dL (7-18); BUN/Creat Ratio 2.5 RATIO (10-20); Chloride 108 mmol/L (98-107); Creatinine, Serum 0.81 mg/dL (0.70-1.30); EST Glomerular Filtration Rate 122 mL/min (>60); Est Glom Filt Rate - Afr Amer 147 mL/min (>60); Estimated Creatinine Clearance 132.53 ml/min; Glucose 163 mg/dL (74-106); Phosphorus 1.4 mg/dL (2.5-4.9); Potassium 2.7 mmol/L (3.5-5.1); Sodium Level 135 mmol/L (136-145)
[2022-11-12 23:36] LABS: Bedside Glucose 164 mg/dL (74-106)
[2022-11-13] VITALS (21 sets, daily range): BP systolic 101–142; BP diastolic 69–95; PULSE 79–116; RESP 15–20; TEMP 36.3–37; O2SAT 96–110; BMI 44.2
[2022-11-13 00:35] LABS: Bedside Glucose 153 mg/dL (74-106)
[2022-11-13 01:30] LABS: Bedside Glucose 157 mg/dL (74-106)
[2022-11-13 02:25] LABS: Bedside Glucose 141 mg/dL (74-106)
[2022-11-13 02:34] LABS: Absolute Lymphocyte Count 2.69 X10^3/uL (0.83-4.51); Absolute Neutrophil Count 6.5 X10^3/uL (2.0-7.7); Basophil# 0.02 X10^3/uL; Basophil% 0.2 % (0-1); Eosinophil# 0.03 X10^3/uL; Eosinophils% 0.3 % (0-5); Hematocrit 41.3 % (40-54); Hemoglobin 14.2 g/dL (13.0-16.5); Lymphocyte # 2.69 X10^3/ul (0.83-4.51); Lymphocyte % 25.8 % (19-41); Mean Corp Hgb Conc 34.4 g/dL (32-36); Mean Corpuscular Hgb 28.7 pg (27.0-32.0); Mean Corpuscular Volume 83.6 fL (80-94); Monocyte# 1.13 X10^3/uL; Monocyte% 10.9 % (0-10); NRBC Flagged by Analyzer 0 % (0-5); Neutrophil % 62.4 % (47-70); Platelet Count 186 K/mm3 (150-450); RBC Distribution Width CV 13.7 % (11.6-14.6); RBC Distribution Width SD 41.9 fl (35.1-43.9); Red Blood Count 4.94 M/mm3 (4.6-6.2); White Blood Count 10.4 K/mm3 (4.4-11.0)
[2022-11-13 02:49] LABS: Anion Gap 12 (5-15); BUN 2 mg/dL (7-18); BUN/Creat Ratio 2.8 RATIO (10-20); Calcium,Total 8.2 mg/dL (8.5-10.1); Chloride 108 mmol/L (98-107); Creatinine, Serum 0.72 mg/dL (0.70-1.30); EST Glomerular Filtration Rate 139 mL/min (>60); Est Glom Filt Rate - Afr Amer 168 mL/min (>60); Glucose 140 mg/dL (74-106); Potassium 2.7 mmol/L (3.5-5.1); Sodium Level 136 mmol/L (136-145)
[2022-11-13 03:26] LABS: Bedside Glucose 130 mg/dL (74-106)
[2022-11-13] MEDS: Potassium Chloride Oral Tablet 20 MEQ 80 MEQ PO (03:36)
[2022-11-13 04:21] LABS: Bedside Glucose 120 mg/dL (74-106)
[2022-11-13 05:26] LABS: Bedside Glucose 121 mg/dL (74-106)
[2022-11-13] MEDS: 0.9% Saline Lock 10 ML Syringe IV ×3 (05:41→12:18)
[2022-11-13] MEDS: Dext 5%-0.45% NS 1,000 ML 150 ML IV (05:42)
[2022-11-13] MEDS: Ondansetron 4 MG/2 ML Vial IV ×2 (05:59→12:17)
[2022-11-13 06:15] LABS: Bedside Glucose 154 mg/dL (74-106)
[2022-11-13 06:18] LABS: Anion Gap 10 (5-15); BUN 1 mg/dL (7-18); BUN/Creat Ratio 1.5 RATIO (10-20); Calcium,Total 8.4 mg/dL (8.5-10.1); Chloride 109 mmol/L (98-107); Creatinine, Serum 0.67 mg/dL (0.70-1.30); EST Glomerular Filtration Rate 152 mL/min (>60); Est Glom Filt Rate - Afr Amer 183 mL/min (>60); Estimated Creatinine Clearance 160.22 ml/min; Glucose 154 mg/dL (74-106); Potassium 2.8 mmol/L (3.5-5.1); Sodium Level 134 mmol/L (136-145)
[2022-11-13 07:25] LABS: Bedside Glucose 141 mg/dL (74-106)
[2022-11-13 09:25] LABS: Bedside Glucose 136 mg/dL (74-106)
[2022-11-13 09:25] LABS: Bedside Glucose 131 mg/dL (74-106)
[2022-11-13] MEDS: Potassium Chloride Oral Tablet 20 MEQ 40 MEQ PO ×2 (10:11→17:20)
[2022-11-13] MEDS: Insulin Glargine-YFGN 100 UNIT/ML Pen 20 UNIT SC ×2 (10:13→21:25)
[2022-11-13] MEDS: Enoxaparin 40 MG/0.4 ML Syringe SC ×2 (10:15→21:24)
[2022-11-13 10:31] LABS: Bedside Glucose 104 mg/dL (74-106)
[2022-11-13] MEDS: Calcium Carbonate 500 MG Tablet 1000 MG PO ×2 (11:26→17:20)
--- NOTE | 2022-11-13 11:53 | CASEMGMT ---
Addendum entered by Tamanna Lino 11/13/22 16:53: Pt was provided w/[facility] rac card/contact info. Script received from Dr Lawson for glucometer and it was tubed to [facility] retail pharmacy. Call to Nica in the pharmacy. She states they will deliver the glucometer to ICU this PM so nursing can begin glucometer education w/pt this PM. Pt and RN, Naya, made aware. Original Note: RN?CM?COLLECTION ADVISOR?CM?to room to meet with patient for initial transition planning/care coordination?assessment.?RN?CM?introduced self and role at [facility].? Pt voices understanding and consents to?assessment?at this time.? Pt resting in bed in no distress at this time.? Pt is A/O at this time and answers all questions appropriately.?? Care providers, pharmacy, and demographics verified/updated at this time. PCP: No PCP. Pt states he was just recently (within past 1-2 months) referred to [facility] and had an appt scheduled with them, but he did not show up to the appt. He states he would like to still go there, if possible. Call to Kerrie @ their office. She states they have a policy that if pt no-shows to 1st appt, it needs approved by postal sorting officer to schedule another appt. She reached out to the postal sorting officer and approval received. Appt scheduled w/CLINICAL ENGINEERING MANAGER Yolanda Mancera for this Friday 11/17 @ 1 PM. Pt to arrive 30 min prior. Appt documented in pt's discharge plan. Pt made aware of appt and discussed importance of going to this appt. He voices understanding. Specialists: none Preferred Pharmacy: [facility] Retail Insurance: Miguel Prescription Benefit:?Yes Living Will/HPOA:?Pt does not currently have LW/HCPOA LNOK: Mom: Malou. Dad: Brain Living Arrangements: Lives w/mother and his younger sister in one-story home w/2 steps to enter. Indep. 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 Either one of his parents or a friend can provide transportation. DME: ? Denies having any DME. Pt does not have a glucometer and will need one. He is interested in getting it from [facility] Retail pharmacy. HHC/SNF:No hx. Pt wishes to return home and states has no concerns with going home at time of discharge.? CM?to follow for any any further discharge planning/needs.? Pt voices no further concerns/needs at this time.? Advised pt to ask for?CM?if any further questions/concerns/needs arise.? Voices understanding. PLAN:??Home w/glucometer. Nursing to provide education on DM and insulin admin. Taco BSN?RN?CM
[2022-11-13] MEDS: Insulin Lispro 100 UNIT/ML INSULN.PEN SC ×3 (12:15→21:24)
[2022-11-13 12:35] LABS: Bedside Glucose 186 mg/dL (74-106)
[2022-11-13] MEDS: Potassium Chloride Oral Tablet 20 MEQ PO (13:30)
--- NOTE | 2022-11-13 15:10 | CHAPLAIN ---
Type of Pastoral Visit _x__ Initial Visit ___ Follow-up Visit ___ On-call Visit ___ General Patient Visit ___ Spiritual Assessment ___ Family Conference ___ Bereavement ___ Rapid Response ___ Code Blue ___ Other (describe below) Pastoral Care Referral From _x__ Patient ___ Family ___ Nurse ___ Physician ___ Makeup Artist ___ Investor Relations Director ___ Other (describe below) Sacrament/Intervention ___ Active listening ___ Anointing ___ Pentecostalism ___ Bereavement ___ Communion ___ Thalia exploration ___ ___ Life review ___ Prayer ___ Reconciliation ___ Sacrament of Sick _x__ Supportive presence ___ Wedding ___ Other (describe below) Pastoral Comments patient is sleeping but easily awakens when this [facility] enters room; pt states that he would like to have the [facility] visit but I have not slept in three days and people keep coming into the room when I fall asleep; offer is accepted to return at another time so pt can rest now
[2022-11-13 16:18] LABS: Anion Gap 14 (5-15); BUN 2 mg/dL (7-18); BUN/Creat Ratio 2.8 RATIO (10-20); Calcium,Total 8.6 mg/dL (8.5-10.1); Chloride 107 mmol/L (98-107); Creatinine, Serum 0.72 mg/dL (0.70-1.30); EST Glomerular Filtration Rate 140 mL/min (>60); Est Glom Filt Rate - Afr Amer 169 mL/min (>60); Glucose 190 mg/dL (74-106); Potassium 3.3 mmol/L (3.5-5.1); Sodium Level 135 mmol/L (136-145)
[2022-11-13 17:05] LABS: Bedside Glucose 190 mg/dL (74-106)
--- NOTE | 2022-11-13 17:30 | PCM.PN.HOSP ---
Reason for Visit Reason for Visit: Diagnoses Type 2 diabetes mellitus with ketoacidosis without coma (11/12/22) Type 2 diabetes mellitus without complications (11/12/22) Acidosis, unspecified (11/12/22) Hypokalemia (11/12/22) Nausea with vomiting, unspecified (11/12/22) Subjective Subjective Patient was seen and examined today, he was placed on the diet and taken off the insulin drip today. Patient potassium still low this afternoon, I gave him potassium supplementation, he will be transferred up to [facility] for further care, he will need instructions on how to give his own insulin before he goes home. Objective Data Objective Data Vital Signs: Vital Signs Temp Pulse Resp BP Pulse Ox O2 Del Method 97.6 F L 108 H 16 119/82 H 96 Room Air 11/13/22 16:00 11/13/22 16:00 11/13/22 16:00 11/13/22 16:00 11/13/22 16:00 11/13/22 16:00 Oxygen Delivery Method Room Air Weight: 132.5 kg Body Mass Index (BMI) 44.2 Intake & Output: Intake and Output for Last 24 Hours 11/11/22 11/12/22 11/13/22 23:59 23:59 23:59 Intake Total 7111.9633 / 7111.9633 3380.6233 / 3380.6233 Output Total 3875 / 3875 1575 / 1575 Balance 3236.9633 / 3236.9633 1805.6233 / 1805.6233 Lab / Micro Data Result Diagrams: 11/13/22 02:15 11/13/22 15:30 Labs: Laboratory Results - last 24 hr 11/12/22 17:04: POC Glucose 171 H 11/12/22 17:55: Magnesium 2.6 11/12/22 17:55: Phosphorus 1.1 L* 11/12/22 17:55: Sodium 135 L, Potassium 2.8 L, Chloride 109 H, Carbon Dioxide 12.0 L, Anion Gap 14, BUN 2 L, Creatinine 0.81, Estim Creat Clear Calc 132.53, Est GFR (MDRD) Af Amer 147, Est GFR (MDRD) Non-Af 121, BUN/Creatinine Ratio 2.5 L, Glucose 160 H, Calcium 8.1 L 11/12/22 18:04: POC Glucose 158 H 11/12/22 19:04: POC Glucose 128 H 11/12/22 20:27: POC Glucose 148 H 11/12/22 21:12: POC Glucose 164 H 11/12/22 22:08: Magnesium 2.3 11/12/22 22:08: Phosphorus 1.4 L 11/12/22 22:08: Sodium 135 L, Potassium 2.7 L*, Chloride 108 H, Carbon Dioxide 15.0 L, Anion Gap 12, BUN 2 L, Creatinine 0.81, Estim Creat Clear Calc 132.53, Est GFR (MDRD) Af Amer 147, Est GFR (MDRD) Non-Af 122, BUN/Creatinine Ratio 2.5 L, Glucose 163 H, Calcium 8.0 L 11/12/22 22:08: POC Glucose 160 H 11/12/22 23:14: POC Glucose 164 H 11/13/22 00:17: POC Glucose 153 H 11/13/22 01:10: POC Glucose 157 H 11/13/22 02:05: POC Glucose 141 H 11/13/22 02:15: Sodium 136, Potassium 2.7 L*, Chloride 108 H, Carbon Dioxide 16.0 L, Anion Gap 12, BUN 2 L, Creatinine 0.72, Estim Creat Clear Calc 149.10, Est GFR (MDRD) Af Amer 168, Est GFR (MDRD) Non-Af 139, BUN/Creatinine Ratio 2.8 L, Glucose 140 H, Calcium 8.2 L 11/13/22 02:15: WBC 10.4, RBC 4.94, Hgb 14.2, Hct 41.3, MCV 83.6, MCH 28.7, MCHC 34.4, RDW Std Deviation 41.9, RDW Coeff of Ivonne 13.7, Plt Count 186, MPV 13.0 H, Immature Gran % (Auto) 0.400, Neut % (Auto) 62.4, Lymph % (Auto) 25.8, [place] % (Auto) 10.9 H, Eos % (Auto) 0.3, Baso % (Auto) 0.2, Absolute Neuts (auto) 6.5, Absolute Lymphs (auto) 2.69, Nucleated RBC % 0 11/13/22 03:03: POC Glucose 130 H 11/13/22 03:58: POC Glucose 120 H 11/13/22 05:03: POC Glucose 121 H 11/13/22 05:55: Sodium 134 L, Potassium 2.8 L, Chloride 109 H, Carbon Dioxide 15.0 L, Anion Gap 10, BUN 1 L, Creatinine 0.67 L, Estim Creat Clear Calc 160.22, Est GFR (MDRD) Af Amer 183, Est GFR (MDRD) Non-Af 152, BUN/Creatinine Ratio 1.5 L, Glucose 154 H, Calcium 8.4 L 11/13/22 05:56: POC Glucose 154 H 11/13/22 07:03: POC Glucose 141 H 11/13/22 08:00: POC Glucose 136 H 11/13/22 09:03: POC Glucose 131 H 11/13/22 10:10: POC Glucose 104 11/13/22 12:14: POC Glucose 186 H 11/13/22 15:30: Sodium 135 L, Potassium 3.3 L, Chloride 107, Carbon Dioxide 14.0 L, Anion Gap 14, BUN 2 L, Creatinine 0.72, Estim Creat Clear Calc 149.10, Est GFR (MDRD) Af Amer 169, Est GFR (MDRD) Non-Af 140, BUN/Creatinine Ratio 2.8 L, Glucose 190 H, Calcium 8.6 11/13/22 16:31: POC Glucose 190 H Rhythm Strip Rhythm Strip: Sinus Tach Rate: 110 Ectopy: None Physical Exam Const alert, oriented x3, no apparent distress and healthy appearing General Appearance: cooperative, well kempt and well developed Orientation / Consciousness: awake, oriented to person, oriented to place and oriented to time HEENT normocephalic, head/scalp atraumatic and moist oral mucous membranes Eyes PERRL, EOMs intact bilaterally and conjunctivae normal Neck supple, no JVD, thyroid normal and no carotid bruits General: trachea midline Resp normal respiratory effort, no retractions, no use of accessory muscles and clear to auscultation bilaterally Auscultation: Negative for rales, rhonchi or wheezes Cardio regular rate, regular rhythm, S1 normal heart sound, S2 normal heart sound, no murmurs, no rub and no gallops GI normal to inspection, nondistended, normoactive bowel sounds, soft to palpation, non-tender and non-distended Extremity no clubbing, cyanosis or edema Skin no rashes or lesions noted General Skin Exam: no breakdown Neuro oriented x3, CN's II-XII intact bilaterally, moves all extremities, no focal motor deficits and no sensory deficits noted Sensorium / Orientation: awake, alert, oriented to person, oriented to place and oriented to time Speech: speech normal Motor Exam: strength 5/5 throughout Psych affect normal Assessment & Plan Assessment/Plan (1) DKA (diabetic ketoacidosis): PLAN: Plan 1. Diabetic ketoacidosis secondary to uncontrolled type 1 diabetes due to poor compliance with medical regimen-again patient appears to be stable for transfer to medical floor, blood sugars will be monitored, I adjusted the patient's insulin dosage. #2 hypokalemia-secondary to #1, potassium supplementation will be given, labs will be monitored #4 hypophosphatemia-patient was given Neutra-Phos, labs will be monitored Total clinical time spent by myself addressing patient's medical issues, reviewing all of his data, and collaborating with patient's care team: 50 minutes Charges/Coding Visit Charges Inpatient E&M: 87949 Subs Hosp L2
[2022-11-13] MEDS: Na Biphos/Potassium Phosphate PACKET 1 PACKET PO (21:34)
[2022-11-13 21:55] LABS: Bedside Glucose 260 mg/dL (74-106)
[2022-11-14] VITALS (9 sets, daily range): BP systolic 111–160; BP diastolic 74–95; PULSE 96–113; RESP 16–22; TEMP 36.4–37.1; O2SAT 98–100; BMI 44.2
[2022-11-14 06:46] LABS: Anion Gap 12 (5-15); BUN 2 mg/dL (7-18); BUN/Creat Ratio 2.8 RATIO (10-20); Calcium,Total 8.8 mg/dL (8.5-10.1); Chloride 104 mmol/L (98-107); Creatinine, Serum 0.72 mg/dL (0.70-1.30); EST Glomerular Filtration Rate 139 mL/min (>60); Est Glom Filt Rate - Afr Amer 168 mL/min (>60); Glucose 201 mg/dL (74-106); Phosphorus 2.4 mg/dL (2.5-4.9); Sodium Level 133 mmol/L (136-145)
[2022-11-14 08:28] LABS: Magnesium 1.9 mg/dL (1.6-2.6)
[2022-11-14] MEDS: Potassium Chloride Oral Tablet 20 MEQ 60 MEQ PO (09:19)
[2022-11-14] MEDS: Na Biphos/Potassium Phosphate PACKET 1 PACKET PO ×2 (09:20→23:25)
[2022-11-14] MEDS: Enoxaparin 40 MG/0.4 ML Syringe SC ×2 (09:20→22:30)
[2022-11-14] MEDS: Insulin Lispro 100 UNIT/ML INSULN.PEN SC ×4 (09:33→22:31)
[2022-11-14] MEDS: Insulin Lispro 100 UNIT/ML INSULN.PEN 8 UNIT SC ×3 (09:34→17:05)
[2022-11-14] MEDS: Insulin Glargine-YFGN 100 UNIT/ML Pen 20 UNIT SC (09:42)
[2022-11-14] MEDS: Calcium Carbonate 500 MG Tablet 1000 MG PO (09:57)
[2022-11-14 11:30] LABS: Bedside Glucose 203 mg/dL (74-106)
--- NOTE | 2022-11-14 12:20 | NURSING ---
Pt sitting on edge of bed c/o SOB/anxiety. Assisted back in bed and instructed on deep breathing techniques. Pulse initially 140s, after a few seconds of guided breathing, pulse 105. All other VS WNL, see documentation. Emotional support and education provided. Pt states relief of symptoms. Family member at bedside. JANET Holland aware. Fingerstick blood sugar recently checked, see labs.
[2022-11-14 12:26] LABS: Bedside Glucose 220 mg/dL (74-106)
--- NOTE | 2022-11-14 13:51 | CHAPLAIN ---
Type of Pastoral Visit ___ Initial Visit ___ Follow-up Visit ___ On-call Visit ___ General Patient Visit ___ Spiritual Assessment ___ Family Conference ___ Bereavement ___ Rapid Response ___ Code Blue ___ Other (describe below) Pastoral Care Referral From ___ Patient ___ Family ___ Nurse ___ Physician ___ Supervisor Small Appliance Assembly ___ Insole Bottom Filler ___ Other (describe below) Sacrament/Intervention ___ Active listening ___ Anointing ___ Gnosticism ___ Bereavement ___ Communion ___ Thalia exploration ___ ___ Life review ___ Prayer ___ Reconciliation ___ Sacrament of Sick ___ Supportive presence ___ Wedding ___ Other (describe below) Pastoral Comments this recreation supervisor requests permission to enter room with closed door; pt speaks that he is getting dressed and does not want a visit at this time; offer of return later for visit affirmed by patient
[2022-11-14 14:42] LABS: C-Peptide 3.6 ng/mL (1.1-4.4)
--- NOTE | 2022-11-14 17:16 | NURSING ---
Blood Sugar is 193 on pts own Glucometer. This RN wanted pt to check his Blood sugar on his own glucometer vs the hospitals. Mr. Jon's glucometer was brand new and came from [facility].
--- NOTE | 2022-11-14 20:39 | PN.HOSP_ITS ---
Reason for Visit Reason for Visit: Diagnoses Type 2 diabetes mellitus with ketoacidosis without coma (11/12/22) Type 2 diabetes mellitus without complications (11/12/22) Acidosis, unspecified (11/12/22) Hypokalemia (11/12/22) Nausea with vomiting, unspecified (11/12/22) Subjective Subjective Patient was seen and examined today, I had a long discussion with the patient's father outside of the patient's hospital room, patient's father is concerned that the patient will not be compliant with medical care after he gets discharged, he feels that the patient may have some psychological issues and the patient's father states that he feels that some of this stems from the patient living with his mother. I told the patient's father that I would have discussion with the patient concerning taking antidepressants perhaps, patient's father stated that the patient has no confirmed history of psychiatric illness but he does smoke cannabis often and he does not feel that his son is motivated to accomplish very much with his life. Initially I told the patient today I felt he could probably go home this afternoon, after thinking about it further, I do not think the patient is ready for discharge at this time I think he needs to talk to nutritional services again tomorrow morning and go over his diet with them. Patient does have a follow-up appointment according to nursing, with a PCP later this week as an outpatient. I will recheck the patient's labs in the morning. Objective Data Objective Data Vital Signs: Vital Signs Temp Pulse Resp BP Pulse Ox O2 Del Method 97.5 F L 96 18 151/95 H 99 Room Air 11/14/22 20:30 11/14/22 20:30 11/14/22 20:30 11/14/22 20:30 11/14/22 20:30 11/14/22 20:30 Oxygen Delivery Method Room Air Weight: 132.5 kg Body Mass Index (BMI) 44.2 Intake & Output: Intake and Output for Last 24 Hours 11/12/22 11/13/22 11/14/22 23:59 23:59 23:59 Intake Total 7111.9633 / 7111.9633 3680.6233 / 3680.6233 1360 / 1360 Output Total 3875 / 3875 1575 / 1575 Balance 3236.9633 / 3236.9633 2105.6233 / 2105.6233 1360 / 1360 Lab / Micro Data Result Diagrams: 11/13/22 02:15 11/15/22 06:05 Labs: Laboratory Results - last 24 hr 11/12/22 03:05: C-Peptide 3.6 11/13/22 21:23: POC Glucose 260 H 11/14/22 05:30: Sodium 133 L, Potassium 3.0 L, Chloride 104, Carbon Dioxide 17.0 L, Anion Gap 12, BUN 2 L, Creatinine 0.72, Estim Creat Clear Calc 149.10, Est GFR (MDRD) Af Amer 168, Est GFR (MDRD) Non-Af 139, BUN/Creatinine Ratio 2.8 L, Glucose 201 H, Calcium 8.8, Phosphorus 2.4 L 11/14/22 05:30: Magnesium 1.9 11/14/22 06:19: POC Glucose 203 H 11/14/22 11:36: POC Glucose 220 H Rhythm Strip Rhythm Strip: Sinus Tach Rate: 110 Ectopy: None Physical Exam Const alert, oriented x3, no apparent distress and healthy appearing General Appearance: cooperative, well kempt and well developed Orientation / Consciousness: awake, oriented to person, oriented to place and oriented to time HEENT normocephalic and moist oral mucous membranes Eyes PERRL, EOMs intact bilaterally and conjunctivae normal Neck supple, no JVD, thyroid normal and no carotid bruits General: trachea midline Resp normal respiratory effort and clear to auscultation bilaterally Auscultation: Negative for rales, rhonchi or wheezes Cardio regular rate, regular rhythm, no murmurs, no rub and no gallops GI normal to inspection, nondistended, normoactive bowel sounds, soft to palpation, non-tender and non-distended Extremity no clubbing, cyanosis or edema Skin no rashes or lesions noted General Skin Exam: no breakdown Neuro oriented x3, CN's II-XII intact bilaterally, no focal motor deficits and no sensory deficits noted Sensorium / Orientation: awake and alert Speech: speech normal Psych affect normal Assessment & Plan Assessment/Plan (1) DKA (diabetic ketoacidosis): PLAN: Plan 1. Diabetic ketoacidosis secondary to uncontrolled type 1 diabetes due to poor compliance with medical regimen-again patient appears to be stable for transfer to medical floor, blood sugars will be monitored, I adjusted the patient's insulin dosage. Patient will be reevaluated tomorrow for possible discharge #2 hypokalemia-secondary to #1, potassium supplementation will be given, labs will be monitored #4 hypophosphatemia-patient was given Neutra-Phos, labs will be monitored Total clinical time spent by myself addressing patient's medical issues, kip watson all of his data, and collaborating with patient's care team: 36 minutes Charges/Coding Visit Charges Inpatient E&M: 37020 Subs Hosp L2
[2022-11-14] MEDS: Insulin Glargine-YFGN 100 UNIT/ML Pen 25 UNIT SC (22:30)
[2022-11-15 02:46] VITALS: BP 137/90; PULSE 104; RESP 18; TEMP 36.5; O2SAT 99
[2022-11-15 05:24] VITALS: BMI 43.5
--- NOTE | 2022-11-15 05:44 | NURSING ---
Pt took his blood sugar last night on his own glucometer it was 219.
[2022-11-15 07:04] VITALS: O2SAT 99
[2022-11-15 07:25] LABS: Anion Gap 10 (5-15); BUN 3 mg/dL (7-18); BUN/Creat Ratio 4.4 RATIO (10-20); Chloride 103 mmol/L (98-107); Creatinine, Serum 0.68 mg/dL (0.70-1.30); EST Glomerular Filtration Rate 147 mL/min (>60); Est Glom Filt Rate - Afr Amer 178 mL/min (>60); Estimated Creatinine Clearance 157.87 ml/min; Glucose 195 mg/dL (74-106); Potassium 2.9 mmol/L (3.5-5.1); Sodium Level 136 mmol/L (136-145)
[2022-11-15] MEDS: Insulin Lispro 100 UNIT/ML INSULN.PEN 10 UNIT SC ×2 (08:03→10:41)
[2022-11-15] MEDS: Insulin Lispro 100 UNIT/ML INSULN.PEN SC ×2 (08:04→10:42)
[2022-11-15 08:20] VITALS: BP 140/86; PULSE 103; RESP 18; TEMP 36.6; O2SAT 99
[2022-11-15] MEDS: Insulin Glargine-YFGN 100 UNIT/ML Pen 25 UNIT SC (10:41)
[2022-11-15] MEDS: Na Biphos/Potassium Phosphate PACKET 1 PACKET PO (10:49)
[2022-11-15] MEDS: Enoxaparin 40 MG/0.4 ML Syringe SC (10:54)
--- NOTE | 2022-11-15 11:33 | PCM.DC ---
Discharge Instructions Diet Discharge Diet: 2000 Calorie Control Diet Activity Discharge Activity: Return to Normal Activity Weight Bearing Status: Full weight bearing Follow Up Care Test Results: Test results from this visit will be discussed in further detail at your follow-up appointment, if applicable. Discharge Plan Admission Admit Date/Time: 11/12/22 01:05 Primary Reason for Your Visit: diabetic ketoacidosis Attending Provider: Michael Lawson Primary Care Provider: Care Physician,No Primary Consulting Providers: Adeola Siddiqi ; Jany Martinez Instructions Additional Instructions / Restrictions: Check your blood sugars three times a day and record them for your doctor visit Discharge Orders/Prescriptions Prescriptions: New insulin lispro [Humalog KwikPen Insulin] 100 unit/mL Insulin Pen 10 unit subcut TIDAC Qty: 5 0RF insulin glargine-yfgn 100 unit/mL (3 mL) Insulin Pen 30 unit subcut BID Qty: 5 0RF duloxetine [Cymbalta] 30 mg capsule,delayed release(DR/EC) 30 mg PO UD Qty: 60 0RF Rx Instructions: take one daily for 4 days, then two once a day thereafter potassium chloride 20 mEq tablet extended release 20 meq PO BID Qty: 60 0RF Referrals / Follow Up: LISA GUTHRIE CRNP [Non-Staff] - 11/17/22 1:00 pm (Appt is @ [facility] [address] [place] [id number] PH: [phone] Appt is @ 1 PM. Please arrive 30 min prior to complete paperwork. ) Disposition Disposition (needs filled in before D/C Order can be placed): Home, Self Care
--- NOTE | 2022-11-15 11:52 | PCM.DC.SUM ---
Providers Date of Admission: 11/12/22 Date of Discharge: 11/15/22 Primary Care Physician: No Primary Care Phys Reason For Visit: DKA/NEW ONSET DM-1 Diagnosis Discharge Diagnosis (1) DKA (diabetic ketoacidosis): Status: Acute Code(s): E11.10 - Type 2 diabetes mellitus with ketoacidosis without coma Plan 1. Diabetic ketoacidosis secondary to uncontrolled type 1 diabetes due to poor compliance with medical regimen-again patient appears to be stable for transfer to medical floor, blood sugars will be monitored, I adjusted the patient's insulin dosage. #2 hypokalemia-secondary to #1, potassium supplementation will be given, labs will be monitored #4 hypophosphatemia-patient was given Neutra-Phos, labs will be monitored #5 chronic anxiety-patient was placed on Cymbalta Total clinical time spent by myself addressing patient's medical issues, reviewing all of his data, and collaborating with patient's care team: 31 minutes Medications at Discharge Home Medications duloxetine 30 mg capsule,delayed release (Cymbalta) 30 mg PO UD #60 caps 11/15/22 insulin glargine-yfgn 100 unit/mL (3 mL) subcutaneous pen 30 unit (0.3 mL) subcut BID #5 mL 11/15/22 insulin lispro 100 unit/mL subcutaneous pen (Humalog KwikPen (U-100) Insulin) 10 unit (0.1 mL) subcut TIDAC #5 mL 11/15/22 potassium chloride 20 mEq tablet,extended release 20 meq PO BID #60 tabs 11/15/22 Hospital Course Operations None Procedures None Summary of Care Provided Minutes Spent on Discharge: 31 Hospital Course: This 27-year-old white male was seen in the emergency room at [facility] with chief complaint of nausea and vomiting. Had been diagnosed recently with diabetes but has not been in to see a physician due to the fact his physician had retired and he was unable to establish with a new physician. Work-up in the emergency room showed the patient to be in DKA, he was admitted to ICU and placed on an insulin drip and given supplemental potassium for low potassium. Patient improved during his hospital stay, he was transferred to [facility] for further care and his diabetic medications were adjusted. This examiner had a conversation with the patient's father concerning concerns for patient compliance as an outpatient, I had discussions with the patient concerning this prior to his discharge. He agreed to take an antidepressant for anxiety. Patient appeared to have anxiety issues due to his living situation with his mother. On 11/15/2022, patient was seen and examined: On examination he appeared in good health and spirits. Vital signs as documented. Skin warm and dry and without overt rashes. Neck without JVD, neck was supple, trachea midline, thyroid was normal. Lungs clear bilaterally, normal air movement was noted. Heart exam notable for regular rhythm, normal sounds and absence of murmurs, rubs or gallops. Abdomen unremarkable and without evidence of organomegaly, masses, or abdominal aortic enlargement. Bowel sounds are present, abdomen is not distended. Extremities nonedematous, no cyanosis was noted, no clubbing was noted. Neuro: Cranial nerves II through XII are grossly intact, no focal motor deficits were noted, sensation to light touch and pinprick intact, motor exam 5/5 throughout. Psych: Patient is alert and oriented x3, he does not appear anxious or depressed, he does not appear agitated Arrangements were made for the patient to follow-up with family physician the week of his discharge. Weight / BMI Weight Weight: 130.4 kg Body Mass Index (BMI) 43.5 ABG / Lab / Microbiology Data Result Diagrams: 11/13/22 02:15 11/15/22 06:05 Laboratory: Laboratory Results - last 24 hr 11/12/22 03:05: C-Peptide 3.6 11/14/22 11:36: POC Glucose 220 H 11/15/22 06:05: Sodium 136, Potassium 2.9 L, Chloride 103, Carbon Dioxide 23.0, Anion Gap 10, BUN 3 L, Creatinine 0.68 L, Estim Creat Clear Calc 157.87, Est GFR (MDRD) Af Amer 178, Est GFR (MDRD) Non-Af 147, BUN/Creatinine Ratio 4.4 L, Glucose 195 H, Calcium 9.0, Phosphorus 4.0 D/C Instructions Discharge Diet: 2000 Calorie Control Diet Weight Bearing Status: Full weight bearing Meaningful Use Info Meaningful Use Diagnoses (Choose all that apply): None applicable Discharge Plan Admission Admit Date/Time: 11/12/22 01:05 Primary Reason for Your Visit: diabetic ketoacidosis Attending Provider: Michael Lawson Primary Care Provider: Care Physician,No Primary Consulting Providers: Adeola Siddiqi ; Jany Martinez Instructions Patient Instructions: Managing Type 1 Diabetes, How to Check Your Blood Sugar, Insulin How To Use Where Inject, Types of Insulin, Diabetes Manage Stress, Understanding Type 1 Diabetes, Blood Sugar Check Steps, Insulin Shot Steps Additional Instructions / Restrictions: Check your blood sugars three times a day and record them for your doctor visit Discharge Orders/Prescriptions Prescriptions: New insulin lispro [Humalog KwikPen Insulin] 100 unit/mL Insulin Pen 10 unit subcut TIDAC Qty: 5 0RF insulin glargine-yfgn 100 unit/mL (3 mL) Insulin Pen 30 unit subcut BID Qty: 5 0RF duloxetine [Cymbalta] 30 mg capsule,delayed release(DR/EC) 30 mg PO UD Qty: 60 0RF Rx Instructions: take one daily for 4 days, then two once a day thereafter potassium chloride 20 mEq tablet extended release 20 meq PO BID Qty: 60 0RF Referrals / Follow Up: LISA GUTHRIE CRNP [Non-Staff] - 11/17/22 1:00 pm (Appt is @ [facility] [address] [place] [address] PH: [phone] Appt is @ 1 PM. Please arrive 30 min prior to complete paperwork. ) Disposition Disposition (needs filled in before D/C Order can be placed): Home, Self Care Charges/Coding Visit Charges Inpatient E&M: 99747 Disch Hosp >30min
[2022-11-15] MEDS: Potassium Chloride Oral Tablet 20 MEQ 60 MEQ PO (11:59)
[2022-11-15 13:00] VITALS: BP 149/94; PULSE 110; RESP 18; TEMP 36.6; O2SAT 96
--- NOTE | 2022-11-15 13:59 | CASEMGMT ---
Addendum entered by Mary Dorman 11/15/22 14:34: TC to pt father's phone, no answer. Addendum entered by Mary Dorman 11/15/22 14:33: Pharmacist made aware pt was not ordered pen needles, she notified hospitalist. Pt has dc'd. TC to pt phone, went to a message and pt does not have vm set up. TC to pt mother and left message requesting returned call. Original Note: RN CM into pt room, pt lying in bed. Pt states he feels comfortable dc'ing home. He feels comfortable with checking his blood sugar and insulin. Pt states the nurses have reviewed this extensively with him. Pt states he plans to follow up with his PCP and obtain referral for [facility]. Pt denies any homegoing needs.
--- NOTE | 2022-11-15 14:34 | PHA.DC.MR ---
Pharmacy Service has performed discharge medication reconciliation for this patient. The patient's discharge medication list was reviewed for discrepancies and discrepancies were resolved. Spoke to Dr. Lawson, 2 insulin pens ordered but no pen needles. called order in to retail pharmacy. Medication education papers prepared, patient discharged before I was able to pre parole counseling aide. 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 This [facility] spoke to RN KRISTIE, she will let the patient know about pen needles. Home Medications duloxetine 30 mg capsule,delayed release (Cymbalta) 30 mg PO UD #60 caps 11/15/22 insulin glargine-yfgn 100 unit/mL (3 mL) subcutaneous pen 30 unit (0.3 mL) subcut BID #5 mL 11/15/22 insulin lispro 100 unit/mL subcutaneous pen (Humalog KwikPen (U-100) Insulin) 10 unit (0.1 mL) subcut TIDAC #5 mL 11/15/22 potassium chloride 20 mEq tablet,extended release 20 meq PO BID #60 tabs 11/15/22
== END 2022-11-15 14:29 | disposition home or self-care (01) | DRG 420 ==
LOC: ED 11-12 00:35 → ICU 11-12 01:19 → MS3 11-13 18:09
PROVIDERS: Student in an Organized Health Care Education/Training Program; Admitting Provider Internal Medicine; Emergency Provider Emergency Medicine; Visit Provider Internal Medicine
DX: E11.10 Type 2 diabetes mellitus with ketoacidosis without coma (principal); E83.39 Other disorders of phosphorus metabolism; E11.65 Type 2 diabetes mellitus with hyperglycemia; Z68.41 Body mass index [BMI] 40.0-44.9, adult; E66.01 Morbid (severe) obesity due to excess calories; E87.6 Hypokalemia; F41.9 Anxiety disorder, unspecified; Z86.16 Personal history of COVID-19
CPT/HCPCS: 36415; 71046; 80048; 80053; 80061; 81001; 82009; 82803; 82962; 83036; 83690; 83735; 84100; 84443; 84681; 85025; 93005; 94668; 94762; 97802; 97803; 99252; 99283; J7030; J7040; A4216; G0463; J2405; J7799